=== PATIENT | male | born 1985 | race Hispanic/Latino ===

== ENCOUNTER 2017-08-13 17:48 | Emergency (ER) | payer OTHER ==
--- NOTE | 2017-08-13 18:20 | EDM.PDOC ---
ED HPI GENERAL MEDICAL PROBLEM - General Stated Complaint: SICK Time Seen by Provider: 08/13/17 18:16 - History of Present Illness INITIAL COMMENTS - FREE TEXT/NARRATIVE: HISTORY AND PHYSICAL: History of present illness: Patient 32-year-old male presented concern of history of fever he states temperature was 101-102 prior he denies any medication on arrival presents afebrile he denies cough shortness of breath he states he has had some body aches he denies nausea vomiting or diarrhea denies influenza immunization this year Review of systems: As per history of present illness and below otherwise all systems reviewed and negative. Past medical history: As per history of present illness and as reviewed below otherwise noncontributory. Surgical history: As per history of present illness and as reviewed below otherwise noncontributory. Social history: No reported history of drug or alcohol abuse. Family history: As per history of present illness and as reviewed below otherwise noncontributory. Physical exam: HEENT: Atraumatic, normocephalic, pupils reactive, negative for conjunctival pallor or scleral icterus, mucous membranes moist, throat clear, neck supple, nontender, trachea midline. Lungs: Clear to auscultation, breath sounds equal bilaterally, chest nontender. Heart: S1S2, regular, negative for clicks, rubs, or JVD. Abdomen: Soft, nondistended, nontender. Negative for masses or hepatosplenomegaly. Negative for costovertebral tenderness. Pelvis: Stable nontender. Genitourinary: Deferred. Rectal: Deferred. Extremities: Atraumatic, negative for cords or calf pain. Neurovascular unremarkable. Neuro: Awake, alert, oriented. Cranial nerves II through XII unremarkable. Cerebellum unremarkable. Motor and sensory unremarkable throughout. Exam nonfocal. Diagnostics: Influenza screen Therapeutics: None Impression: #1 history of fever Definitive disposition and diagnosis as appropriate pending reevaluation and review of above. Generalized Pain Score (Numeric/FACES): 10 - Related Data Allergies Allergy/AdvReac Type Severity Reaction Status Date / Time No Known Allergies Allergy Verified 08/13/17 18:19 Home Meds: Home Meds . [No Known Home Meds] 08/13/17 [History] ED ROS GENERAL - Review of Systems Review Of Systems: ROS reveals no pertinent complaints other than HPI. ED EXAM, GENERAL - Physical Exam Exam: See Below (See dictation) Course - Vital Signs Last Recorded V/S: Last Vital Signs Temp 37.1 C 08/13/17 18:15 Pulse 117 H 08/13/17 18:15 Resp 18 08/13/17 18:15 BP 119/71 08/13/17 18:15 Pulse Ox 94 L 08/13/17 18:15 - Orders/Labs/Meds Orders: Active Orders 24 hr Category Date Time Status Chest 2V [CR] Stat Exams 08/13/17 18:20 Taken Departure - Departure Time of Disposition: 18:18 Disposition: Home, Self-Care 01 Condition: Good Clinical Impression: History of fever - Discharge Information Referrals: PCP,None [Primary Care Provider] - Additional Instructions: The following information is given to patients seen in the emergency department who are being discharged to home. This information is to outline your options for follow-up care. We provide all patients seen in our emergency department with a follow-up referral. The need for follow-up, as well as the timing and circumstances, are variable depending upon the specifics of your emergency department visit. If you don't have a primary care physician on staff, we will provide you with a referral. We always advise you to contact your personal physician following an emergency department visit to inform them of the circumstance of the visit and for follow-up with them and/or the need for any referrals to a consulting specialist. The emergency department will also refer you to a specialist when appropriate. This referral assures that you have the opportunity for followup care with a specialist. All of these measure are taken in an effort to provide you with optimal care, which includes your followup. Under all circumstances we always encourage you to contact your private physician who remains a resource for coordinating your care. When calling for followup care, please make the office aware that this follow-up is from your recent emergency room visit. If for any reason you are refused follow-up, please contact the [facility] emergency department at and asked to speak to the emergency department charge nurse. [facility] [address] [place] [id number] Motrin/Tylenol as directed push fluids follow-up primary medical doctor and/or clinic above as needed as discussed and return as needed as discussed - My Orders Last 24 Hours: My Active Orders 08/13/17 18:20 Chest 2V [CR] Stat - Assessment/Plan Last 24 Hours: My Active Orders 08/13/17 18:20 Chest 2V [CR] Stat
--- NOTE | 2017-08-14 15:34 | CR ---
EXAM DATE: 08/13/17 PATIENT'S AGE: 32 Patient: MATEO JAMES Facility: [place], [place] Site . Site : [id number] Study: XRay Chest [id number]/22/2018 7:08:47 PM Ordering Physician: Kathrin Fields Final Report: INDICATION: fever CHEST, PA AND LATERAL Upright PA and lateral radiographs of the chest were performed. Comparison: No previous studies are currently available for comparison. The lungs appear clear and there are no pleural effusions. Heart size and pulmonary vasculature appear normal. Visualized bones show no significant findings. IMPRESSION: No acute intrathoracic abnormality identified. ZAIRE COLE MD [employer] Dictated by: Dominic Cole MD @ 08/13/2017 19:22:12 (Electronic Signature) Report Signed by Proxy. [facility]
== END 2017-08-13 20:06 | disposition home or self-care (01) ==
LOC: MW.ED 17:48
DX: R50.9 Fever, unspecified (principal)
CPT/HCPCS: 71046; 71046-26; 87804; 99282; 99283